=== PATIENT | male | born 1970 | race African-American/Black ===

== ENCOUNTER 2019-09-18 08:50 | Day surgery (SDC) | payer MEDICAID ==
[~2019-09-18] VITALS: Ht 185.4 cm; Wt 97.5 kg
[2019-09-18 09:19] LABS: BASOPHILS 1.1 % (0-2); EOSINOPHILS 7.7 % (0-7); HEMATOCRIT 42.1 % (42.0-54.0); HEMOGLOBIN 13.8 g/dL (13.5-17.5); MCH 26.6 pg (26.0-34.0); MCHC 32.8 g/dL (31.0-37.0); MCV 81.3 fL (80.0-100.0); MEAN PLATELET VOLUME 8.6 fL (7.4-10.4); MONOCYTES 8.8 % (2-11); NEUTROPHILS 50.4 % (40-80); PLATELET COUNT 177 10x3/uL (130-400); RBC 5.18 10x6/uL (4.20-6.10); RDW 17.1 % (11.5-14.5); WBC 3.6 10x3/uL (4.8-10.8)
[2019-09-18 09:26] LABS: INR 0.98 (0.85-1.17); PROTIME 12.9 SECONDS (11.6-15.0)
[2019-09-18 09:27] LABS: ANION GAP 8.3 mmol/L (8-16); CALCIUM 8.6 mg/dL (8.5-10.1); CARBON DIOXIDE 30.3 mmol/L (21.0-32.0); CREATININE - SERUM 3.6 mg/dL (0.6-1.3); POTASSIUM - SERUM 3.6 mmol/L (3.5-5.1)
[2019-09-18] MEDS ORDERED: COREG25 MG PO (10:22)
[2019-09-18] MEDS ORDERED: HYDRALAZINE HCL50 MG PO (10:22)
[2019-09-18] MEDS ORDERED: LONITEN2.5 MG PO (10:22)
[2019-09-18 10:30] VITALS: BP 203/139; Ht 185.4 cm; Wt 97.5 kg
[2019-09-18] MEDS ORDERED: HYDROCODON-ACE1 EAC7 PO (13:52)
--- NOTE | 2019-09-18 14:12 | NUR ---
PER INGOT CASTER, PER DR. ROSAS DO NOT TREAT BP UNLESS SYSTOLIC BP RISES ABOVE 180.
--- NOTE | 2019-09-18 16:10 | NUR ---
PT DC INSTRUCTIONS REVIEWED AT THIS TIME, PT AND FAMILY VERBALIZE UNDERSTANDING. PT DIALYSIS ACESS FLUSHED WITH 1.9CC OF HEPARIN PER CATHETER INSTRUCTIONS.
--- NOTE | 2019-09-18 16:15 | NUR ---
PT LEAVING OPS AT THIS TIME VIA WC, NAD NOTED.
--- NOTE | 2019-09-21 08:47 | OP ---
PATIENT NAME: CAROL CORCORAN MEDICAL RECORD: [id number] :69 LOCATION:[facility] ADMISSION DATE: SURGEON: MAURICIO ROSAS MD DATE OF OPERATION: 09/18/2019 PREOPERATIVE DIAGNOSES: End-stage renal disease and dependence on chronic dialysis and asymptomatic small umbilical hernia. POSTOPERATIVE DIAGNOSES: End-stage renal disease and dependence on chronic dialysis and asymptomatic small umbilical hernia. OPERATION PERFORMED: Open repair of umbilical hernia without need for mesh followed by laparoscopic implantation of peritoneal dialysis catheter and then creation of right radial cephalic arteriovenous Aleks type left upper extremity radiocephalic AV fistula. ANESTHESIA: General with LMA per LEAK PATCHER along with regional nerve block. REFERRING PHYSICIAN: Dr. Godoy PREOPERATIVE NOTE: Mr. Corcoran is a 49-year-old -[place] male from [place]. He has end-stage renal disease and has had to initiate dialysis with a tunneled dialysis catheter. He has a right internal jugular tunneled catheter in place. He is brought to the operating room today to create an AV fistula in the left upper extremity and to implant a peritoneal dialysis catheter. He is known to have a small umbilical hernia, which will be repaired at the same time. Under anesthesia and nerve block, the patient was prepped and draped in a sterile manner with the patient supine. A Rico catheter was inserted. A transverse curved supraumbilical incision was made and carried down to the midline fascia. The patient had a rather unusual very small hernia sac and the sac was simply transected at fascial level and the fascia repaired with a single [id number] #1 Vicryl suture. The excised sac was sent for histopathology. I then made a tunnel downward over the anterior rectus sheath on the left. A pursestring suture was placed at a site where I felt the deeper Dacron felt cuff on his peritoneal dialysis catheter would be positioned. A 5 mm port was then inserted with a 5-mm laparoscope into the left upper quadrant. Pneumoperitoneum was established with carbon dioxide. Examination revealed a dimple of left inguinal hernia, which I did not feel had to be repaired today. There was no umbilical hernia visible from within. I then inserted the Merit adult size large dual cuff coil classic Flex-Neck dialysis catheter through intrarectus oblique tunnel and positioned the catheter in the pelvis just below the level of the symphysis. The catheter deep cuff was inserted below the anterior rectus sheath and the pursestring suture tied. The catheter was then pulled through a laterally directed subcutaneous tunnel to an exit site in the left upper quadrant. The catheter was then attached to 1000 cc bag of saline which ran into the abdomen very easily and then ran out easily also and this was without any laparoscopic pressure. Subsequently, the catheter was capped and an extension set attached which was then heparin locked, clamped and capped. The umbilical incision area was infiltrated with 0.25% Marcaine with epinephrine. It was necessary for hemostasis as the patient was very bleedy. The wound was irrigated with Ancef/gentamicin solution and closed with interrupted inverted 3-0 Vicryl and running intracuticular 4-0 Stratafix and Dermabond glue. That OPERATIVE REPORT [id number] CAROL CORCORAN site was dressed with Maxorb Ag, Tegaderm, and Cavilon skin prep. The 5-mm port was removed and hemostasis obtained there with injection of 0.25% Marcaine with epinephrine. Skin was closed with interrupted inverted 3-0 Vicryl and Dermabond glue. It was dressed with Maxorb Ag, Tegaderm, and Cavilon skin prep. The catheter exit site was dressed with a chlorhexidine Biopatch. The catheter was then coiled and covered with a 4 x 4 bordered gauze dressing. The patient then reprepped and redraped for the AV fistula procedure. Under nerve block under general anesthesia, the patient's veins dilated quite significantly and he was noted to have a very large cephalic vein from the thumb to the deltopectoral groove. There was palpably a good radial pulse and I used ultrasound to document that there was minimal calcification there and the radial artery was of normal caliber. The cephalic vein was a bit remote on the dorsum of the wrist and back of the hand. So the 2 incisions were necessary. I first made an incision directly over the distal radial artery and exposed and controlled it proximally and distally with Silastic loops. The lateral incision was then made over the vein and the vein mobilized. Two large tributaries were divided between Vicryl ties and Hemoclips. The vein was ligated distally with Vicryl. It was then transected. It was flushed with heparinized saline and clamped. The vein was pulled through a subcutaneous tunnel beneath the skin bridge between the 2 incisions. We took care not to rotate the vein. The vein was shortened and beveled. The artery was opened for a short distance of about 5 mm and I flushed proximally and distally with heparinized saline and then an end-to-side, end of vein to side of artery anastomosis was completed with a running 7-0 Prolene. When completed, the suture line was hemostatic. There was excellent Doppler flow in the new fistula and in the radial artery. The patient's wounds were irrigated with Ancef/gentamicin solution and infiltrated with 0.25% Marcaine with epinephrine and closed with interrupted inverted 3-0 Vicryl and then running intracuticular 4-0 Stratafix, Dermabond glue, Maxorb Ag, Tegaderm, and Cavilon skin prep. With a good fistula, the patient was then awakened and taken to the recovery room. Blood loss during the operation was insignificant and unreplaced. Sponges, instruments, and needles were accounted for. No drain was used. The only surgical specimen was the small umbilical hernia sac, which was sent for routine histopathology. PLAN: The patient will go home today and return to see me in my office in 2 weeks. We will communicate with the [place] dialysis unit and ask that his new dialysis catheter be flushed probably on Tuesday of this week when he goes in for dialysis. He was given a prescription for Moline 5/325, 20 tablets. He can take 1 p.o. q.4 hours p.r.n. pain and is advised to use ice off and on to the abdomen. He will resume his usual dialysis schedule and continue his same medications, diet, activities, etc. TRANSINT:[id number] Voice Confirmation ID: [id number] DOCUMENT ID: [id number] cc: [facility] OPERATIVE REPORT [id number] CAROL CORCORAN JAMES MD at 0847 CC: GAMALIEL GODOY [id number] DICTATION DATE: 09/18/19 1413 DIRECTOR CASE: 09/18/19 [id number] [facility] 09/18/19 [id number] [place] [address]
== END 2019-09-18 16:15 | disposition home or self-care (01) ==
LOC: D.OPS 08:50
PROVIDERS: Surgery; ATTEND Internal Medicine Nephrology
DX: N18.6 End stage renal disease (principal); Z99.2 Dependence on renal dialysis; K42.9 Umbilical hernia without obstruction or gangrene

== ENCOUNTER 2019-11-27 07:43 | Day surgery (SDC) | payer MEDICAID ==
[~2019-11-27] VITALS: Ht 185.4 cm; Wt 96.2 kg
--- NOTE | ~2019-11-27 | OP ---
PATIENT NAME: CAROL SEE MEDICAL RECORD: [id number] :68 LOCATION:D.OPS ADMISSION DATE: SURGEON: MAURICIO ROSAS MD DATE OF OPERATION: 11/27/2019 REFERRED BY: Pancho Godoy MD PREOPERATIVE DIAGNOSIS: Recovery of renal function with chronic kidney disease. POSTOPERATIVE DIAGNOSIS: Recovery of renal function with chronic kidney disease. OPERATION PERFORMED: Removal of right internal jugular tunneled dialysis catheter and removal of peritoneal dialysis catheter. SURGEON: Mauricio Rosas MD ANESTHESIA: General with LMA per DYNAMITER. PREOPERATIVE NOTE: This gentleman who has a TDC on the right and the jugular vein and also has a peritoneal catheter, has been able to get off dialysis and he has been referred to me so that we can remove both catheters. DESCRIPTION OF PROCEDURE: Under general anesthesia, the patient was placed in supine position, prepped and draped in sterile manner. The TDC exit site in the right subclavicular or infraclavicular area was explored with a hemostat and the superficial Dacron cuff dissected from the surrounding tissues and the catheter was then withdrawn while holding pressure on the tract for hemostasis. I sent the tip of the catheter for culture. The rest was discarded. Hemostasis was obtained after a period of direct pressure and a sterile dressing was applied. The peritoneal dialysis catheter was then removed. This required a small incision over the palpable subcutaneous Dacron felt cuff, which was freed from the surrounding tissues by blunt and electrocautery dissection. Another incision was made inferior to that over the palpable level of catheter penetration of the rectus sheath. The rectus sheath was exposed with electrocautery dissection and the deep cuff bluntly and sharply dissected from the surrounding tissues and the peritoneal dialysis catheter removed. I repaired the fascia of the anterior rectus sheath with a [id number] 0 Vicryl suture. The catheter was removed and discarded. I did not culture this. I then noted the extensive proud flesh on the catheter exit site and I elected to excise that with a transversely oriented ellipse, which then left 3 transverse incisions on the abdomen. These were irrigated with Ancef and gentamicin solution and infiltrated with 0.25% Marcaine without epinephrine and closed with interrupted inverted 3-0 Vicryl and then running intracuticular 4-0 Stratafix and Dermabond glue. They were dressed with Maxorb Ag Tegaderm with Cavilon skin prep. He was awakened and in stable condition taken to the recovery room. PLAN: I plan for the patient to go home today. Continue his same medications and diet and activities and follow up per Dr. Godoy in [place]. I do not really think I need to see him more than perhaps once just for wound check. We will have an appointment scheduled for him to come to see me next week. In the meantime, he should leave the original operative is intact and keep them clean and dry. He is given a prescription for tramadol 50 mg 15 of these. He can OPERATIVE REPORT [id number] CAROL SEE take 1 p.o. q.4 hours p.r.n. pain. He is also advised to use ice on the surgical sites to reduce pain and swelling. TRANSINT:[id number] Voice Confirmation ID: [id number] DOCUMENT ID: [id number] MAURICIO ROSAS MD CC: PANCHO GODOY [id number] DICTATION DATE: 11/27/19 1633 ECONOMIC HISTORY TEACHER: 11/28/19 0251 [facility] 11/27/19 [id number] [place] [address]
[~2019-11-27 07:43] MED LIST: COREG25 MG PO; HYDRALAZINE HCL50 MG PO; HYDROCODON-ACE1 EAC7 PO; LONITEN2.5 MG PO
[2019-11-27 08:08] LABS: BASOPHILS 0.7 % (0-2); EOSINOPHILS 3.6 % (0-7); HEMATOCRIT 40.3 % (42.0-54.0); HEMOGLOBIN 13.4 g/dL (13.5-17.5); IMMATURE GRANULOCYTES 0.2 % (0-5); LYMPHOCYTES 25.2 % (15-50); MCH 27.3 pg (26.0-34.0); MCHC 33.3 g/dL (31.0-37.0); MCV 82.2 fL (80.0-100.0); MEAN PLATELET VOLUME 8.9 fL (7.4-10.4); MONOCYTES 9.7 % (2-11); NEUTROPHILS 60.6 % (40-80); PLATELET COUNT 210 10x3/uL (130-400); RDW 15.5 % (11.5-14.5); WBC 4.4 10x3/uL (4.8-10.8)
[2019-11-27 08:09] LABS: CALCIUM 9.3 mg/dL (8.5-10.1); CARBON DIOXIDE 24.1 mmol/L (21.0-32.0); CREATININE - SERUM 4.4 mg/dL (0.6-1.3); POTASSIUM - SERUM 4.1 mmol/L (3.5-5.1)
[2019-11-27 08:19] LABS: INR 0.99 (0.85-1.17); PROTIME 13.1 SECONDS (11.6-15.0)
[2019-11-27] MEDS ORDERED: SODIUM BICARBO650 MG PO (09:11)
[2019-11-27] MEDS ORDERED: ADALAT CC90 MG PO (09:11)
[2019-11-27] MEDS ORDERED: COZAAR100 MG PO (09:12)
[2019-11-27 09:19] VITALS: BP 126/75; Ht 185.4 cm; Wt 96.2 kg
[2019-11-27] MEDS ORDERED: ULTRAM50 MG PO (14:45)
--- NOTE | 2019-11-27 17:05 | NUR ---
[facility] BUS HERE TO GET PATIENT. DISCHARGE INSTRUCTIONS REVIEWED WITH PATIENT, DISCHARGED HOME VIA WHEELCHAIR TO [facility] VEHICLE
== END 2019-11-27 17:05 | disposition home or self-care (01) ==
LOC: D.OPS 07:43
PROVIDERS: Surgery; ATTEND Internal Medicine Nephrology
DX: N18.6 End stage renal disease (principal); Z99.2 Dependence on renal dialysis; K42.9 Umbilical hernia without obstruction or gangrene; I10 Essential (primary) hypertension; J45.909 Unspecified asthma, uncomplicated